=== PATIENT | male | born 2000 | race Caucasian/White ===

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

== ENCOUNTER 2019-04-14 21:53 | Emergency (ER) | payer OTHER, SELFPAY ==
[2019-04-14 22:01] VITALS: BP 115/79; PULSE 87; RESP 16; TEMP 35.9; O2SAT 98
--- NOTE | 2019-04-14 22:06 | ED.GENADUL_ITS ---
Discharge Plan Disposition Patient Disposition: HOME Condition: Good Discharge Details Chief Complaint: Sorethroat Clinical Impression: Strep pharyngitis Primary Care Provider: Victoriano Hope ED Provider: Emeli Rosales Home Meds and New Rx's Prescriptions: Continued gabapentin 300 mg capsule 300 mg PO as directed Qty: 60 RF: 0 magnesium oxide 400 mg (241.3 mg magnesium) tablet 400 mg PO DAILY Qty: 30 RF: 0 ketoconazole 2 % shampoo 1 applic Topical PRN Qty: 120 RF: 1 riboflavin (vitamin B2) [Vitamin B-2] 100 MG tablet 100 mg PO DAILY RF: 0 Discharge Instructions Instructions: Upper Respiratory Infection (ED) Additional Instructions: Encourage water intake. Tylenol and/or ibuprofen as needed for discomfort. Please continue antibiotics as prescribed by primary care physician. If you develop fevers, inability stay hydrated, difficulty breathing, shortness of breath, inability to open your mouth or the new/worsening symptom please seek care urgently once again. Otherwise, please follow-up with primary care next week for reevaluation. Referrals: Victoriano Hope MD [Primary Care Provider] - Discharge Data Discharge Date/Time-TO BE ENTERED AT DEPARTURE: 04/14/19 22:30 Medical Decision Making Patient is a 19-year-old male, accompanied by his mother, chief complaint of sore throat. Patient was seen by his primary care 2 days ago and was diagnosed with Streptococcus pharyngitis. He reports being on Keflex, he feels like his symptoms have persisted. Per primary care note, patient was noted to have some tonsillar swelling. They are also now concerned that he has some swelling under the edge of his mandible. No fevers. No difficulty eating or drinking. Has been tolerating antibiotics well. On exam, patient is resting comfortably. Appears nontoxic. He appears well- hydrated, no trismus. No muffled voice, no unilateral swelling. He has posterior oropharynx erythematous but no tonsillar swelling or exudate. He does have palpable lymphadenopathy which coincides with the area that he and his mother concerned about with swelling. We discussed potentially changing antibiotics. However, as his clinical exam appears to be improving, the Keflex is likely working well despite his persistent discomfort. I encouraged water intake. Advised Tylenol and ibuprofen as needed for discomfort. They are given strict return precautions. We will follow-up with primary care next week. All the questions concerns were addressed HPI General Mode of arrival: ambulatory . Date/Time Provider Initiated Documentation: 04/14/19 22:06 . Limitations to Documentation: no limitations . Information obtained by: patient, family (mother) and RN notes reviewed . History of Present Illness 19 year old M presents to the emergency department with the chief complaint of sore throat, described as mild, with intensity rated at 3. Quality is described as burning, and is localized to the mouth. Patient started experiencing this day(s) and it has been constant. No relieving factors improve symptom(s), No exacerbating factors reported . Patient notes denies chest pain, cough, diaphoresis, fever/chills, loss of appetite, nausea/vomiting, rash and shortness of breath. Patient did receive the following treatments prior to arrival, other (currently on keflex) Related Data Home Medications Medication Instructions Recorded Confirmed riboflavin (vitamin B2) [Vitamin 100 mg PO DAILY 05/26/17 04/14/19 B-2] gabapentin 300 mg capsule 300 mg PO as directed #60 tab-cap 03/18/19 04/14/19 ketoconazole 2 % shampoo 1 applic TOPICAL PRN #120 ml 03/18/19 04/12/19 magnesium oxide 400 mg (241.3 mg 400 mg PO DAILY #30 tab 03/18/19 04/14/19 magnesium) tablet Previous Rx's Medication Instructions Recorded gabapentin 300 mg capsule 300 mg PO as directed #60 tab-cap 03/18/19 ketoconazole 2 % shampoo 1 applic TOPICAL PRN #120 ml 03/18/19 magnesium oxide 400 mg (241.3 mg 400 mg PO DAILY #30 tab 03/18/19 magnesium) tablet Allergies Allergy/AdvReac Type Severity Reaction Status Date / Time iodine Allergy Severe Verified 04/12/19 08:52 quetiapine fumarate Allergy Severe Verified 04/12/19 08:52 [From Seroquel] shellfish derived Allergy Severe Verified 04/12/19 08:52 cefixime [From Suprax] Allergy Mild Unverified 04/14/19 22:06 amoxicillin [Amoxicillin] AdvReac Intermediate VOMITING Verified 04/12/19 08:52 SUN RAYS Allergy Mild Uncoded 04/12/19 08:52 General Stated Complaint: Sorethroat EMILEE: 4 Review of Systems Constitutional Constitutional: Reports as per HPI and Denies headache(s) Eyes Eyes: Reports as per HPI, Denies eye discharge and Denies irritation ENT Ears, Nose, Mouth, and Throat: Reports as per HPI and Denies headache(s) Cardiovascular Cardiovascular: Reports as per HPI, Denies chest pain and Denies dyspnea Respiratory Respiratory: Reports as per HPI and Denies dyspnea Gastrointestinal Gastrointestinal: Reports as per HPI, Denies abdominal pain, Denies change in bowel habits, Denies nausea and Denies vomiting Integumentary/Breasts Skin/Breast: Reports as per HPI and Denies rash Neurologic Neurologic: Reports as per HPI and Denies headache(s) PFSH Family History Mother Fibroid, uterine Father Asthma Brother Asthma GRANDPARENTS Polycystic kidney disease Migraine Social History Smoking/Tobacco Use Status: Never Alcohol Intake: never Drug use: Never Do you feel safe in your relationship?: Yes Exam Const General: cooperative, healthy appearing, comfortable, no acute distress, well developed and well groomed Nutritional Appearance: average body habitus and well nourished Orientation: alert and awake HENUT Head: normal to inspection, normocephalic and atraumatic Ears: hearing grossly normal bilaterally, external ears normal and TM's normal bilaterally General nose exam: external nose normal and nares normal Face and sinus: normal facial exam, sinuses nontender and face symmetric Mouth: oral mucosae normal, lip normal, tongue normal, oropharynx normal, moist mucous membranes, no muffled voice, no trismus and No restricted motion Teeth and gingiva: dentition normal Throat: posterior oropharynx abnormal (erythematous), tonisls abnormal (erythematous) and uvula midline Eyes General: appearance normal, both eyes and all related structures Neck Neck: normal visual inspection, full ROM, no meningeal signs and lymphadenopathy Resp Effort & Inspection: normal respiratory effort, able to speak in complete sentences and no respiratory distress Auscultation: clear to auscultation bilaterally, no rales, no rhonchi and no wheezes Cardio Rate: regular rate Rhythm: regular rhythm Heart Sounds: S1 normal and S2 normal Skin General skin exam: no rashes or lesions noted Neuro General: alert and awake Cognition: normal cognition Speech: speech normal Gait: normal gait Psych Appearance: grossly normal and well kempt Mental Status: mental status grossly normal Speech and Movement: speech and movement normal Course Vital Signs Vital signs: Vital Signs Temperature 35.9 C L 04/14/19 22:01 Pulse 87 04/14/19 22:01 Respiratory Rate 16 04/14/19 22:01 Blood Pressure 115/79 04/14/19 22:01 Pulse Oximetry 98 04/14/19 22:01 Temperature 35.9 C L 04/14/19 22:01 Temperature Source Skin 04/14/19 22:01 Pulse 87 04/14/19 22:01 Respiratory Rate 16 04/14/19 22:01 Respiratory Effort 04/14/19 22:01 Blood Pressure 115/79 04/14/19 22:01 Pulse Oximetry 98 04/14/19 22:01 Oxygen Delivery Method Room Air 04/14/19 22:01 Oxygen Flow Rate 0 04/14/19 22:01 Pain Level 3 04/14/19 22:01
[2019-04-14 22:32] VITALS: BP 115/79; PULSE 87; RESP 16; TEMP 35.9; O2SAT 98
== END 2019-04-14 22:30 | disposition home or self-care (01) ==
PROVIDERS: Emergency Provider Physician Assistant; PCP Pediatrics
DX: J02.0 Streptococcal pharyngitis (principal)
CPT/HCPCS: 99282; 99283

== ENCOUNTER 2019-09-11 09:51 | Outpatient (CLI) | payer OTHER, SELFPAY ==
[2019-09-12 13:08] LABS: COVID-19 RT-PCR UVMMC Result Negative (Negative)
== END 2019-09-11 10:11 ==
PROVIDERS: PCP Pediatrics; Visit Provider Pediatrics
DX: R11.2 Nausea with vomiting, unspecified (principal)
CPT/HCPCS: U0003

== ENCOUNTER 2021-01-24 15:13 | Outpatient (REF) | payer OTHER, SELFPAY ==
[2021-01-25 15:09] LABS: COVID-19 RT-PCR UVMMC Result Negative (Negative)
== END 2021-01-24 15:14 | disposition home or self-care (01) ==
LOC: LBN 15:13
PROVIDERS: PCP Pediatrics; Visit Provider Student in an Organized Health Care Education/Training Program
DX: Z20.822 Contact with and (suspected) exposure to COVID-19 (principal)
CPT/HCPCS: U0003

== ENCOUNTER 2021-02-16 11:43 | Emergency (ER) | payer OTHER, SELFPAY ==
[2021-02-16 11:50] VITALS: BP 126/87; PULSE 79; TEMP 36.5; O2SAT 98
--- NOTE | 2021-02-16 11:54 | ED.GENADUL_ITS ---
Discharge Plan Disposition Patient Disposition: HOME Condition: Good Discharge Details Clinical Impression: Ankle sprain Primary Care Provider: Victoriano Hope ED Provider: Emeli Rosales Home Meds and New Rx's Prescriptions: Continued gabapentin 300 mg capsule 300 mg PO as directed Qty: 60 RF: 0 multivitamin Tablet 1 tab PO DAILY RF: 0 ketoconazole 2 % shampoo 1 applic Topical PRN Qty: 120 RF: 3 Discharge Instructions Instructions: Ankle Sprain (ED) Additional Instructions: Your x-ray of your foot and ankle are reassuring here today. No evidence of fracture or dislocation. As we discussed, your history exam is most consistent with an ankle sprain. Please continue with the lace up ankle brace for the next 2 weeks. Please encourage rest, ice, elevation. Tylenol and ibuprofen as needed for discomfort. As discussed, please begin your ankle exercises with the lower case and upper case alphabet drawing to help strengthen the ankle and prevent any further injury. At work, please try to elevate your foot every 2 hours for 10 to 15 minutes to help reduce the swelling. You may begin your regular activities, avoid exercises or activities that cause undue stress on the ankle. Please follow-up with primary care for reevaluation in 2-week. If you develop any new or worsening symptoms please seek care urgently once again. Stand Alone Forms: Work Release Referrals: Victoriano Hope MD [Primary Care Provider] - Discharge Data Discharge Date/Time-TO BE ENTERED AT DEPARTURE: 02/16/21 14:25 Medical Decision Making Patient is a 20 year old male, brought in by his mother, with c/c of let foot/ankle pain. States that yesterday he suffered an internal rotational event when walking on uneven ground at work, and has had discomfort along lower ankle/upper lateral foot. Reports that last night he had swelling. Has been icing. Has been using his brothers walking boot to help immobilize and help with pain. [id number] other injury at the time of the incident.States that his toes feel like they fell asleep. On exam, patient appears non toxic. Ambulating with antalgic gait. Exam of the LLE without evidence of deformity. No swelling, discoloration or objective evidence of trauma. 2+ distal pulses. 2 point discrimination intact. No pain over the proximaal fibula or knee. No painin calf. Achilles intact. Limited ROM of ankle secondary to pain along lateral malleolus. No deformity. Pain maximal along the ATFL. No pain over the proximal 5th metatarsal. Pain is just medial to this and proximal. No pain along plantar surface. FINDINGS: Bones/joints: Normal. Soft tissues: Lateral soft tissue swelling. IMPRESSION: No fracture. FINDINGS: Bones/joints: Normal. Soft tissues: Normal. IMPRESSION: No acute findings Weighted view that was ordered did not initially get obtained, addendum from radiology after weight view: Addendum created by Vimal Montalvo MD on 02/16/2021 1:43:13 PM EST: Repeat AP view shows no evidence of fracture. Discussed these findings with the patient. Advised that his pain is maximal over the ATFL, and he suffered the internal rotational injury, most concern for ankle sprain. Encourage rest, ice, elevation. Tylenol and/or ibuprofen if no discomfort. With the weather, I am concerned that the boot he is wearing will put him at increased risk of fall and is likely unnecessary. Rather, we will fit him with a lace up ankle brace and have him wear his more sturdy shoes that hopefully will help prevent any further falls. We discussed exercises to help strengthen the ankle and prevent further injury. Advise follow-up with primary care in 2 weeks for reevaluation. Return precautions were discussed. All his questions and concerns were addressed and he is in agreement with this plan. [facility] General Mode of arrival: ambulatory . Date/Time Provider Initiated Documentation: 02/16/21 11:54 . Limitations to Documentation: no limitations . Information obtained by: patient, family (mom), RN/MD (contacted by electronic die maker prior to arrival) and RN notes reviewed . History of Present Illness 20 year old M presents to the emergency department with the chief complaint of left foot/ankle pain, described as mild (2), Quality is described as aching, and is localized to the left and lower extremity. Patient reports no radiation. Patient started experiencing this day(s) (1) and it has been constant. Immobilization improves symptom(s), Movement worsens symptoms (worse when weight bearing) . Patient notes no other symptoms.. Patient did receive the following treatments prior to arrival, other (using brother's walking boot) Related Data Home Medications Medication Instructions Recorded Confirmed gabapentin 300 mg capsule 300 mg PO as directed #60 tab-cap 03/18/19 02/16/21 ketoconazole 2 % shampoo 1 applic TOPICAL PRN #120 ml 07/02/20 02/16/21 multivitamin 1 tab PO DAILY 07/02/20 02/16/21 Previous Rx's Medication Instructions Recorded gabapentin 300 mg capsule 300 mg PO as directed #60 tab-cap 03/18/19 ketoconazole 2 % shampoo 1 applic TOPICAL PRN #120 ml 07/02/20 Allergies Allergy/AdvReac Type Severity Reaction Status Date / Time iodine Allergy Severe Verified 02/16/21 11:54 quetiapine fumarate Allergy Severe Verified 02/16/21 11:54 [From Seroquel] shellfish derived Allergy Severe Verified 02/16/21 11:54 cefixime [From Suprax] Allergy Mild Verified 02/16/21 11:54 amoxicillin [Amoxicillin] AdvReac Intermediate VOMITING Verified 02/16/21 11:54 SUN RAYS Allergy Mild Uncoded 02/16/21 11:54 General Stated Complaint: Orthopedic EMILEE: 3 Review of Systems Constitutional Constitutional: Reports as per HPI, Denies chills, Denies fever(s) and Denies weakness Musculoskeletal Musculoskeletal: Reports as per HPI and Denies tingling Integumentary/Breasts Skin/Breast: Reports as per HPI, Denies rash and Denies wounds Neurologic Neurologic: Reports as per HPI, Denies tingling, Denies paresthesias and Denies weakness [facility] Active Problem List Nightmares (Acute) Anxiety (Acute 08/17/14) Mood disorder (Acute 11/01/14) Autism spectrum disorder (Chronic) Depression (Chronic) Medical History Aggressive behavior Dissociative episodes (12/13/15) Neuro dandre. Nml EEG and MRI. ? migraine related Encounter for person awaiting admission to psychiatric care setting (08/03/14) Suicidal ideation (08/03/14) Family History Mother Fibroid, uterine Father Asthma Brother Asthma GRANDPARENTS Polycystic kidney disease Migraine Social History (Reviewed 02/16/21 @ 12:10 by TREVON Kulkarni Smoking/Tobacco Use Status: Never Smoking risk assessment performed?: Yes Alcohol Intake: never Drug use: Never Substance use type: does not use Do you feel safe at home: Yes Do you feel safe in your relationship?: Yes Exam Const General: cooperative, healthy appearing, comfortable, no acute distress, well developed and well groomed Nutritional Appearance: average body habitus and well nourished Orientation: alert and awake Resp Effort & Inspection: normal respiratory effort, able to speak in complete sent ences and no respiratory distress Cardio Rate: regular rate Rhythm: regular rhythm Skin General skin exam: no rashes or lesions noted Lesions: no lesions Rashes: no rashes Trauma: no lacerations or abrasions Neuro General: patient alert and patient awake Cognition: normal cognition Speech: speech normal Gait: antalgic Motor: muscle tone normal throughout Sensory Exam: no sensory deficits noted Extrem Left lower extremity: normal to inspection, normal capillary refill, no joint enlargement, knee (no pain over proximal fibula) Details: normal to inspection, lower leg Details: normal to inspection and no edema; no tenderness, no localized swelling and no palpable cords, ankle Details: normal to inspection, tenderness Location: of the lateral malleolus and of the anterior talofibular ligament and no edema; no swelling, ROM abnormal (limited with both dorsiflexion and plantar flexion), no warmth, no abrasions, no ecchymosis, no crepitus and achilles tendon exam normal and foot Details: normal capillary refill, normal to inspection, tenderness (proximal lateral foot) Location: of the lateral foot Location: proximally; not at the base of the 5th metatarsal; not of the base of the 5th metatarsal, toes with normal ROM, no edema, vascular exam Details: dorsalis pedis pulse present, posterior tibial pulse present and normal capillary refill, tendon exam Details: active flexion normal and active extension normal and motor-sensory exam Details: two point discrimination normal; no unusual warmth, no edema and no ecchymosis Psych Appearance: grossly normal and well kempt Mental Status: mental status grossly normal Speech and Movement: speech and movement normal Course Vital Signs Vital signs: Vital Signs Temperature 36.5 C 02/16/21 11:50 Pulse 79 02/16/21 11:50 Blood Pressure 126/87 02/16/21 11:50 Pulse Oximetry 98 02/16/21 11:50 Temperature 36.5 C 02/16/21 11:50 Temperature Source Temporal Artery Scan 02/16/21 11:50 Pulse 79 02/16/21 11:50 Blood Pressure 126/87 02/16/21 11:50 Blood Pressure Position Sitting 02/16/21 11:50 Pulse Oximetry 98 02/16/21 11:50 Oxygen Delivery Method Room Air 02/16/21 11:50 Oxygen Flow Rate 0 02/16/21 11:50 Pain Level 9 02/16/21 11:50
--- NOTE | 2021-02-16 12:00 | DI.RAD_ITS ---
Exam(s) XR ANKLE LT COMPLETE EXAM: XR ANKLE LT COMPLETE CLINICAL HISTORY: rolled last night, lateral mal pain. TECHNIQUE: 2D digital imaging was performed. COMPARISON: No exams were available for comparison FINDINGS: No evidence of fracture nor widening of the mortise. Talar dome appears unremarkable. Bone density normal. No osseous tarsal coalition. IMPRESSION: No fracture evident. DATA REPOSITORY: RADIATION DOSE DELIVERED:
--- NOTE | 2021-02-16 12:00 | DI.RAD_ITS ---
Exam(s) XR FOOT LT COMPLETE EXAM: XR FOOT LT COMPLETE CLINICAL HISTORY: rolled last night. TECHNIQUE: 2D digital imaging was performed. COMPARISON: No exams were available for comparison FINDINGS: There is no evidence of fracture nor diastasis of the Lisfranc joint. Accessory ossicle noted on the medial aspect of the foot. Benign bone islands noted in the navicular and medial cuneiform. IMPRESSION: No fracture. DATA REPOSITORY: RADIATION DOSE DELIVERED:
[2021-02-16] MEDS: Acetaminophen 500 MG TAB 1000 MG PO (12:12)
--- NOTE | 2021-02-16 13:17 | DI.VRAD_ITS ---
Addendum created by Vimal Montalvo MD on 02/16/2021 1:43:13 PM EST: Repeat AP view shows no evidence of fracture. Initial report created on 02/16/2021 1:17:09 PM EST: PROCEDURE INFORMATION: Exam: XR Left Foot Exam date and time: 02/16/2021 12:05 PM Age: 20 years old Clinical indication: Injury or trauma; Other: Rolled last night, lateral mal pain; Sprain or strain; Foot; Left TECHNIQUE: Imaging protocol: XR Left foot. Views: 3 or more views. COMPARISON: CR LEFT FOOT COMPLETE 06/01/2017 11:06 AM FINDINGS: Bones/joints: Normal. Soft tissues: Lateral soft tissue swelling. IMPRESSION: No fracture. Dictated and Authenticated by: Vimal Montalvo MD. Ordering:MOSHE Sainz MD
--- NOTE | 2021-02-16 13:18 | DI.VRAD_ITS ---
PROCEDURE INFORMATION: Exam: XR Left Ankle Exam date and time: 02/16/2021 12:05 PM Age: 20 years old Clinical indication: Injury or trauma; Other: Rolled last night, lateral pain; Sprain or strain; Foot; Left TECHNIQUE: Imaging protocol: XR Left ankle. Views: 3 or more views. COMPARISON: CR LEFT ANKLE COMPLETE 06/01/2017 11:06 AM FINDINGS: Bones/joints: Normal. Soft tissues: Normal. IMPRESSION: No acute findings. Dictated and Authenticated by: Vimal Montalvo MD. Ordering:MOSHE Sainz MD
== END 2021-02-16 14:25 | disposition home or self-care (01) ==
PROVIDERS: Emergency Provider Physician Assistant; PCP Pediatrics
DX: S93.492A Sprain of other ligament of left ankle, initial encounter (principal); X50.1XXA Overexertion from prolonged static or awkward postures, initial encounter; Y99.0 Civilian activity done for income or pay
CPT/HCPCS: 29515; 99283; 73610; 73630

== ENCOUNTER 2021-03-26 15:03 | Outpatient (REF) | payer OTHER, SELFPAY ==
[2021-03-28 15:10] LABS: COVID-19 RT-PCR UVMMC Result Negative (Negative)
== END 2021-03-26 15:04 | disposition home or self-care (01) ==
LOC: LBN 15:03
PROVIDERS: PCP Pediatrics; Visit Provider Physician Assistant Medical
DX: Z20.822 Contact with and (suspected) exposure to COVID-19 (principal); R51.9 Headache, unspecified
CPT/HCPCS: U0003

== ENCOUNTER 2025-03-05 13:54 | Outpatient (REF) | payer MEDICARE, MEDICAID, SELFPAY | END 2025-03-05 13:55 | disposition home or self-care (01) | LOC: LBN 13:54 | PROVIDERS: Visit Provider Nurse Practitioner Family | DX: N30.00 Acute cystitis without hematuria (principal) | CPT/HCPCS: 87086 ==

== ENCOUNTER 2025-03-10 23:28 | Outpatient (REF) | payer MEDICARE, SELFPAY ==
[2025-03-10 17:19] LABS: RBC 0-2 HPF (0-2)
== END 2025-03-10 23:29 | disposition home or self-care (01) ==
LOC: LBN 23:28
PROVIDERS: Visit Provider Physician Assistant Medical
DX: N30.00 Acute cystitis without hematuria (principal)
CPT/HCPCS: 81015; 87086